=== PATIENT | female | born 1990 | race Caucasian/White ===

== ENCOUNTER → 2019-11-04 | Emergency (ER) | payer OTHER ==
[~2019-11-04] VITALS: Ht 167.6 cm; Wt 58.1 kg
[~2019-11-04] MED LIST: IRON1TAB4 PO
== END | disposition home or self-care (01) ==
LOC: ER 00:01
DX: N93.8 Other specified abnormal uterine and vaginal bleeding (principal); Z03.818 Encounter for observation for suspected exposure to other biological agents ruled out